=== PATIENT | female | born 1955 | race Caucasian/White ===

== ENCOUNTER 2022-12-17 09:55 | Outpatient (AMB) | payer MEDICARE, OTHER, SELFPAY ==
--- NOTE | 2022-12-17 10:51 | HO.SPINEOV ---
Intake Intake Visit Reasons: review MRI pt will bring disc Intake Note: Ms. Avalos is here today c/o worsening low back pain. MRI done @ [place]. Bee Breeder Required: No Assessment & Plan Assessment & Plan (1) Back pain: Comment: Dear colleague Thank you for referring Norma Avalos to the office today with a chief complaint of chronic low back pain. 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 The pain is progressive. The pain is sharp upon rising from sitting and becomes worse with extension. She can worse back right without difficulties but as soon as she gets off the worse her back hurts significantly. She tried physical therapy chiropractic therapy cortisone injections and acupuncture. Physical therapy made her symptoms worse. She is not really sure what type of injection she received. No weakness sensory deficits. The following conservative treatment options were tried without success antiinflammatories, tylenol, physician guided home exercise plan, cortisone shots PMH: Right shoulder rotator cuff repair Social history: Retired. Nonsmoker Medications: Bupropion, alendronate, Atorvastatin Allergies: NKDA Physical Exam: Pleasant female. This pain on palpation right side of her back. Gautam test produces pain on the right side of her back. Other SI joint provocative test are mildly positive. Extension is painful. No neurological deficits. Radiological Studies: MRI done at [facility] on {11/22/2022 shows good quality discs. No nerve root compression or spinal stenosis. There is facet arthropathy more right than left at L3-4 L4-5 and L5-S1. And standing x-ray with flexion-extension x-ray show no signs of instability. There is a mild degenerative scoliosis. Impression/Plan: This patient is suffering from chronic right-sided low back pain. Differential diagnosis is facet pain or SI joint dysfunction. She is going to send me the prior medical records to see what type of injections were performed. My inclination would be to send her for facet blocks as a 1st line of treatment. I do not see a role for surgery. Thank you for allowing me to participate in your patients care. total time spent was 50 minutes in counseling ,coordination of plan, personal review of imaging, surgical decision making and subsequent plan Lee Radford MD, PhD [facility] Trained Neurosurgeon Director, [facility] Code(s): M54.9 - Dorsalgia, unspecified Orders: Orders XR lumbar spine 4V min Today M54.9 - Dorsalgia, unspecified Coding Level of Care Code New Pt Level 4 (61917) Diagnoses Back pain M54.9
== END 2022-12-17 13:18 | disposition home or self-care (01) ==
PROVIDERS: Visit Provider Neurological Surgery
DX: M54.9 Dorsalgia, unspecified (principal)
CPT/HCPCS: 99204

== ENCOUNTER 2022-12-17 09:55 | Outpatient (REF) | payer MEDICARE, OTHER, SELFPAY ==
--- NOTE | ~2022-12-17 | XR_ITS ---
EXAMINATION: XR LUMBOSACRAL SPINE WITH OBLIQUES CLINICAL INFORMATION: Pain COMPARISON: None available. TECHNIQUE: AP, both oblique, and lateral views of the lumbar spine. Lateral view of the lumbosacral junction. FINDINGS: Eccentrically lumbar lordosis in neutral position. Marked narrowing of the facet joints throughout. No gross spondylolysis. The disc spaces are preserved and the vertebral alignment is normal. The paraspinal soft tissues are normal. With flexion extension imaging, there is very limited range of motion without any gross instability. XR/XR lumbar spine 4V min IMPRESSION: No gross instability. Very limited range of motion. Severe facet arthropathy. No subluxation.
== END 2022-12-17 09:56 | disposition home or self-care (01) ==
LOC: HO.HOSX 09:55
PROVIDERS: Visit Provider Neurological Surgery
DX: M54.9 Dorsalgia, unspecified (principal)
CPT/HCPCS: 72110; 99202